=== PATIENT | male | born 1990 | race Asian ===

== ENCOUNTER 2016-11-17 18:35 | Emergency (ER) | payer OTHER ==
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
== END 2016-11-17 20:50 | disposition home or self-care (01) ==
LOC: CFTX 18:35 → CED 18:35 → CFTX 20:13
DX: S00.83XA Contusion of other part of head, initial encounter (principal); F17.210 Nicotine dependence, cigarettes, uncomplicated; Y00.XXXA Assault by blunt object, initial encounter; Y92.410 Unspecified street and highway as the place of occurrence of the external cause
CPT/HCPCS: 70450; 70486; 72125; 99283